=== PATIENT | male | born 1970 | race Caucasian/White ===

== ENCOUNTER 2016-09-14 09:40 | Emergency (ER) | payer OTHER ==
[2016-09-14 10:33] LABS: HEMOGLOBIN 16.3 gm/dl (14.0-17.5); RED BLOOD COUNT 5.29 M/UL (4.20-5.50)
[2016-09-14 10:57] LABS: BUN/CREATININE RATIO 19 (0-10)
== END 2016-09-14 11:55 | disposition home or self-care (01) ==
LOC: ER1 09:40
PROVIDERS: Physician Assistant
DX: R00.2 Palpitations (principal); R03.0 Elevated blood-pressure reading, without diagnosis of hypertension; F41.9 Anxiety disorder, unspecified
CPT/HCPCS: 71010; 80053; 82550; 82553; 83874; 84443; 84484; 85025; 93005; 99284

== ENCOUNTER 2016-10-15 11:32 | Emergency (ER) | payer OTHER ==
[2016-10-15 12:41] LABS: HEMOGLOBIN 16.7 gm/dl (14.0-17.5); RED BLOOD COUNT 5.39 M/UL (4.20-5.50); WHITE BLOOD COUNT 9.8 K/UL (4.5-11.0)
[2016-10-15 13:12] LABS: BUN/CREATININE RATIO 18 (0-10)
== END 2016-10-15 15:00 | disposition home or self-care (01) ==
LOC: ER1 11:32
PROVIDERS: Family Medicine
DX: R07.89 Other chest pain (principal); F41.9 Anxiety disorder, unspecified; R00.2 Palpitations
CPT/HCPCS: 36415; 71010; 80053; 81001; 82550; 82553; 83874; 84443; 84484; 85025; 93005; 99285